=== PATIENT | male | born 1985 | race Caucasian/White ===

== ENCOUNTER 2018-08-02 21:53 | Emergency (ER) | payer OTHER ==
[~2018-08-02] VITALS: Ht 188 cm; Wt 100.3 kg
[2018-08-02 21:55] VITALS: BP 154/84
[2018-08-02] MEDS ORDERED: RANI150T23 PO (22:00)
[2018-08-02] MEDS ORDERED: METOCLOPRAMIDE 5 MG/ML, 2ML IVPush ONE (23:00)
[2018-08-02] MEDS ORDERED: SODIUM CHLORIDE FLUSH 10ML SYR IVF ONE (23:00)
[2018-08-02] MEDS ORDERED: GLUCAGON 1 MG IVPush ONE (23:00)
[2018-08-02] MEDS ORDERED: FAMOTIDINE 20 MG/2 ML IVP ONE (23:00)
== END 2018-08-02 23:14 | disposition home or self-care (01) ==
LOC: ED 22:19
DX: T18.128A Food in esophagus causing other injury, initial encounter (principal); X58.XXXA Exposure to other specified factors, initial encounter; Y93.89 Activity, other specified; Y92.89 Other specified places as the place of occurrence of the external cause; Y99.8 Other external cause status
CPT/HCPCS: 99283